=== PATIENT | male | born 1940 | race Caucasian/White ===

== ENCOUNTER → 2016-11-06 | Day surgery (SDC) | payer MEDICARE, BC ==
[~2016-11-06] VITALS: Ht 185.4 cm; Wt 106.2 kg
[~2016-11-06] MED LIST: CENTRUM SILVER1 TAB PO; DITROPAN5 MG PO; FEOSOL325 MG PO; LEVOTHROID (S137 MCG PO; LIPITOR40 MG PO; LISINOPRIL5 MG PO; METOPROLOL SUCC25 MG PO; OSCAL500 MG PO; STOOL SOFTENER1 EACH PO; TYLENOL WITH C1 EACH PO
--- NOTE | ~2016-11-06 | OR ---
PATIENT'S NAME: VIJAY GEE [facility] AGE: 75 Y [address] ROOM: [place] [address] LOCATION: [facility] ADMIT DATE: 11/06/2016 OR/Procedure Report DISCHARGE DATE: FAMILY PHYSICIAN: Jorge Dodd MD ATTENDING PHYSICIAN: Sylvester Mccormack V SURGEON: Sylvester Mccormack MD GEM CARVER: JUDIE Yanes. DATE OF PROCEDURE: 11/06/2016 POSTOPERATIVE DIAGNOSES: 1. Squamous cell carcinoma, left lower margin of mandible/face. 2. Squamous cell carcinoma, left forehead frontal temporal region. 3. Squamous cell carcinoma, right worship. POSTOPERATIVE DIAGNOSES: 1. Squamous cell carcinoma, left lower margin of mandible/face. 2. Squamous cell carcinoma, left forehead frontal temporal region. 3. Squamous cell carcinoma, right worship. OPERATION/PROCEDURE: 1. Excision, 4-cm squamous cell carcinoma, left inferior face along the lower margin of the mandible with complex closure. 2. Excision, 6-cm squamous cell carcinoma, left forehead with complex closure. 3. Excision, 4 x 6-cm squamous cell carcinoma, right temporal with V-Y advancement flap reconstruction. ANESTHESIA: Local with sedation. ESTIMATED BLOOD LOSS: Minimal. COMPLICATIONS: None. FINDINGS: Frozen section pathology of the 3 aforementioned lesions upon excision revealed negative margins. DESCRIPTION OF PROCEDURE: The patient was taken to the operating room, laid in supine position. Head was rotated to the right and the left face was approached. Proposed incision line over the left forehead as well as the lower margin of the mandible were marked and infiltrated with 1% lidocaine with epinephrine solution. The left face was then prepped and draped in usual sterile fashion using Betadine solution. Approximately, a 2-cm circumferential incision was performed surrounding the lower margin of the mandible. Subcutaneous tissues were divided using #15 blade down to the fat. Specimen was marked and sent for frozen section pathology. Attention was PATIENT'S NAME: VIJAY GEE [facility] AGE: 75 Y [address] ROOM: [place] [address] LOCATION: [facility] ADMIT DATE: 11/06/2016 OR/Procedure Report DISCHARGE DATE: FAMILY PHYSICIAN: Jorge Dodd MD ATTENDING PHYSICIAN: Sylvester Mccormack V turned to the left forehead. Approximately, 2.5 to 3 cm circumferential incision was performed surrounding previously biopsied squamous cell carcinoma of the left frontal temporal region in the pretracheal line. Subcutaneous tissues were divided down to the periosteum. Specimen was removed, marked, and sent for frozen section pathology. Frozen section pathology on both lesions were revealed negative peripheral as well as deep margins. The left face was initially approached. The primary incision line was converted into an ellipse of approximately 1.5 to 2 cm. Subcutaneous tissues were approximated with interrupted 5-0 Vicryl. Skin closure was performed with a running interlocking 6-0 Ethilon suture. Attention was then turned to the left forehead. Skin edges were undermined along the periosteum and the lesion was converted to 6 x 2.5 cm elliptical incision. Subcutaneous tissues were approximated using interrupted 5-0 Vicryl suture, and skin closure was performed with interrupted 5-0 Ethilon suture. The head was then rotated to the left. Right preauricular temporal region was approached. Proposed incision line was marked and infiltrated with 1% lidocaine with epinephrine solution. The left temporal forehead preauricular region was prepped and draped in usual sterile fashion using Betadine solution. A boomerang-shaped incision was performed surrounding the previously biopsied squamous cell carcinoma. This was approximately 4 cm vertical as well as additional 3.5 cm horizontal. Subcutaneous tissues were divided using #15 blade. Specimen was marked and removed and sent for frozen section pathology. Skin edges were undermined using curved iris scissors. Frozen section pathology revealed all margins were clear. A subsequent V-Y advancement was then performed taking the wedge of the inferior portion of the boomerang shaped forming this into a Y. Skin edges were undermined. Further subcutaneous tissues were approximated with interrupted 5-0 Vicryl suture and skin closure was performed with a running interlocking 6-0 Ethilon sutures. The patient tolerated the procedure well. Neosporin ointment was applied to all aforementioned incision lines. The patient was aroused and discharged from the operating room to recovery room in satisfactory condition. MD KERRY WOLF/gladys /[id number] d: 11/06/161950 t: 11/13/16 1213, OPERATIVE SUMMARY
== END ==
LOC: GPOC 11-02 09:00 → GSDC 06:17 → GPOC 07:00
PROC: 0HB1XZX Excision of Face Skin, External Approach, Diagnostic (ICD-10-PCS; principal; 2016-11-06)
PROC: 0HX0XZZ Transfer Scalp Skin, External Approach (ICD-10-PCS; 2016-11-06)
DX: C44.329 Squamous cell carcinoma of skin of other parts of face (principal); G47.33 Obstructive sleep apnea (adult) (pediatric); J44.9 Chronic obstructive pulmonary disease, unspecified; D64.9 Anemia, unspecified; I10 Essential (primary) hypertension; I25.10 Atherosclerotic heart disease of native coronary artery without angina pectoris; E03.9 Hypothyroidism, unspecified; Z88.0 Allergy status to penicillin; Z96.642 Presence of left artificial hip joint; Z98.890 Other specified postprocedural states; Z87.891 Personal history of nicotine dependence
CPT/HCPCS: C1751; J2001; J7030

== ENCOUNTER → 2017-01-23 | Outpatient (CLI) | payer MEDICARE, BC | END | disposition disaster alternative care site (69) | LOC: GRAD 09:05 | DX: E05.90 Thyrotoxicosis, unspecified without thyrotoxic crisis or storm (principal); Z90.89 Acquired absence of other organs | CPT/HCPCS: A9516 ==

== ENCOUNTER 2017-02-12 08:15 | Day surgery (SDC) | payer MEDICARE, BC ==
[~2017-02-12] VITALS: Ht 182.9 cm; Wt 106.8 kg
--- NOTE | ~2017-02-12 | OR ---
PATIENT'S NAME: VIJAY GEE [facility] AGE: 76 Y [address] ROOM: [address] [address] LOCATION: [facility] ADMIT DATE: 02/12/2017 OR/Procedure Report DISCHARGE DATE: FAMILY PHYSICIAN: Jorge Dodd MD ATTENDING PHYSICIAN: Sylvester Mccormack V SURGEON: Sylvester Mccormack MD BOW STAPLER: JUDIE Yanes. DATE OF PROCEDURE: 02/12/2017 PREOPERATIVE DIAGNOSES: 1. Hyperthyroidism. 2. History of right thyroid lobectomy and isthmusectomy. POSTOPERATIVE DIAGNOSES: 1. Hyperthyroidism. 2. History of right thyroid lobectomy and isthmusectomy. OPERATIONS/PROCEDURES: 1. Left thyroid lobectomy. 2. Placement of EMG-monitored endotracheal tube with intraoperative nerve monitoring, 1 hour. DESCRIPTION OF PROCEDURE: The patient was taken to the operating room, laid in supine position with general endotracheal anesthesia with EMG-monitored endotracheal tube. Ground electrodes were placed. Proposed incision line was marked, infiltrated with 2% lidocaine with epinephrine solution. Neck was prepped and draped in the usual sterile fashion using Betadine solution. Approximately, 6 cm horizontal neck incision was performed through the previous scar with #15 blade. Subcutaneous tissues divided using Bovie electrocautery. Subplatysmal flaps were elevated superiorly, inferiorly, and secured using 2-0 silk sutures. Strap muscles were divided in the midline using Bovie electrocautery and reflected off to the left. The patient had large multinodular left thyroid lobe. Adventitia was divided using Harmonic scalpel. Thyroid lobe was reflected medially. Superior pole was dissected with hemostat. Superior thyroid vessels were clamped and suture ligated with 2-0 silk suture. Thyroid lobe was reflected medially. Middle thyroid vein was divided using Harmonic scalpel, clamped, and suture ligated. Inferior thyroid lobe was noted to be nodular, very lobular. Circumferential dissection performed using Harmonic scalpel. Inferior thyroid vessels were clamped and suture ligated using 2-0 silk suture. The previous area of surgical intervention over the anterior tracheal wall was divided in the midline. Scar tissue was divided using Bovie electrocautery. This was extended laterally. Inferior pole was clamped, suture ligated using a 2-0 silk suture. Thyroid lobe was then reflected superomedially. Adventitia along the undersurface of the thyroid followed superiorly, divided using PATIENT'S NAME: VIJAY GEE [facility] AGE: 76 Y [address] ROOM: [address] [address] LOCATION: [facility] ADMIT DATE: 02/12/2017 OR/Procedure Report DISCHARGE DATE: FAMILY PHYSICIAN: Jorge Dodd MD ATTENDING PHYSICIAN: Sylvester Mccormack V Harmonic scalpel. Once the thyroid lobe was able to be reflected to the right, blunt dissection was performed, recurrent laryngeal nerve was identified. This was confirmed using a stimulus probe at 1 milliamp with good train of response. The nerve was followed superiorly up to Bustillo ligament. Bustillo ligament was clamped and divided using a #15 blade. Specimen was removed, sent for pathology. Bustillo ligament was suture ligated using 3-0 silk suture. Neck was irrigated with copious amounts of bacitracin solution. Hemostasis was adequate. Recurrent laryngeal nerve was stimulated with good train of response indicating intact nerve function. The patient tolerated the procedure well. Occlusive dressing was applied. The patient was aroused, extubated, and discharged from the operating room to recovery room in satisfactory condition. SYLVESTER MCCORMACK MD TVC/modl /[id number] d: 02/12/17 1839 t: 02/19/17 0733, OPERATIVE SUMMARY
[~2017-02-12 08:15] MED LIST changes: -LEVOTHROID (S137 MCG PO; -OSCAL500 MG PO
--- NOTE | 2017-02-12 17:46 | NUR ---
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
--- NOTE | 2017-02-13 04:14 | NUR ---
Significant Event: 1 ASSIST WITH TRANSFERS. VOIDS WITHOUT DIFFICULTY. DRESSING IS CLEAN, DRY AND INTACT. ON 1 L OF OXYGEN NASAL CANNULA. PAIN PILL LAST AT 0051. REFUSED ANY FURTHER PAIN MEDICATION AT THIS TIME. Follow up:
[2017-02-13] MEDS ORDERED: OSCAL500 MG PO (09:17)
[2017-02-13] MEDS ORDERED: LEVOTHROID (S137 MCG PO (09:18)
[2017-02-13] MEDS ORDERED: TYLENOL WITH C1 EACH PO (09:19)
--- NOTE | 2017-02-13 11:21 | NUR ---
d: patient alert and oriented x3. anterior neck dressing c/d/i. ambulates to bathroom and up to chair with sba, use of gaitbelt. appetite good, taking fluids well. denies pain when asked. ice bag to anterior neck. discharge instructions reviewed with patient and , verbalizes understanding. patient dismissed to home, accompanied by . assisted to vehicle via w/c and transport assistance.
== END 2017-02-13 11:21 | disposition disaster alternative care site (69) ==
LOC: GPOC 08:15 → GMSU 08:15 → G3N 13:41 → GPOC 15:00
PROC: 0GTG0ZZ Resection of Left Thyroid Gland Lobe, Open Approach (ICD-10-PCS; principal; 2017-02-12)
DX: E05.90 Thyrotoxicosis, unspecified without thyrotoxic crisis or storm (principal); G47.33 Obstructive sleep apnea (adult) (pediatric); Z96.642 Presence of left artificial hip joint; I10 Essential (primary) hypertension; Z87.891 Personal history of nicotine dependence
CPT/HCPCS: J1100; J2001; J2405; J7120